=== PATIENT | male | born 1970 | race Caucasian/White ===

== ENCOUNTER 2016-03-23 18:32 | Emergency (ER) | payer OTHER ==
[~2016-03-23] VITALS: Ht 182.9 cm; Wt 95.0 kg
[2016-03-23 18:39] VITALS: BP 119/79; PULSE 89; RESP 16; TEMP 97.8; O2SAT 100
[2016-03-23] MEDS ORDERED: ZANT150T2 PO (18:46)
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
[2016-03-23] MEDS ORDERED: DICL50TA3 PO (21:05)
== END 2016-03-23 21:15 | disposition home or self-care (01) ==
LOC: PHEFT 18:32
DX: S83.412A Sprain of medial collateral ligament of left knee, initial encounter (principal); F17.210 Nicotine dependence, cigarettes, uncomplicated; V59.49XA Driver of pick-up truck or van injured in collision with other motor vehicles in traffic accident, initial encounter; Y93.89 Activity, other specified; Y92.410 Unspecified street and highway as the place of occurrence of the external cause
CPT/HCPCS: 73564; 99283